=== PATIENT | male | born 1995 | race Hispanic/Latino ===

== ENCOUNTER 2021-07-08 07:00 | Emergency (ER) | payer OTHER ==
[~2021-07-08] VITALS: Ht 175.3 cm; Wt 78.5 kg
[2021-07-08 07:26] VITALS: O2SAT 97
[2021-07-08] MEDS ORDERED: AUGMENTIN 875 MG TAB PO ONE (07:45)
[2021-07-08] MEDS ORDERED: IBUPROFEN 800 MG TAB PO ONE (07:45)
[2021-07-08] MEDS ORDERED: AMOX875T2 PO (08:29)
[2021-07-08 08:34] VITALS: BP 133/70
== END 2021-07-08 08:48 | disposition home or self-care (01) ==
LOC: M ED 07:00
DX: J06.9 Acute upper respiratory infection, unspecified (principal); F17.220 Nicotine dependence, chewing tobacco, uncomplicated

== ENCOUNTER 2021-12-10 11:43 | Emergency (ER) | payer OTHER ==
[~2021-12-10 11:43] MED LIST: AMOX875T2 PO
[2021-12-10] MEDS ORDERED: KETOROLAC 30 MG/ML 1ML VIAL IM ONE (14:20)
[2021-12-10] MEDS ORDERED: ACETAMINOPHEN 500 MG TAB PO ONE (14:20)
[2021-12-10] MEDS ORDERED: diazePAM 5MG TABLET PO ONE (14:20)
[2021-12-10] MEDS ORDERED: LIDOCAINE 5% (LIDODERM) PATCH TD ONE (14:20)
[2021-12-10] MEDS ORDERED: CYCL5TAB PO (15:20)
[2021-12-10 15:25] VITALS: BP 141/82
[2021-12-10] MEDS ORDERED: **NOTE PATIENT COMMENT** MISC XX SCH (21:00)
== END 2021-12-10 15:27 | disposition home or self-care (01) ==
LOC: M ED 11:43
DX: S39.012A Strain of muscle, fascia and tendon of lower back, initial encounter (principal); Y92.9 Unspecified place or not applicable; Y93.B3 Activity, free weights; Y99.9 Unspecified external cause status; Z79.899 Other long term (current) drug therapy
CPT/HCPCS: 72110; 96372; 99283; J1885